=== PATIENT | male | born 1995 | race Hispanic/Latino ===

== ENCOUNTER 2018-02-14 10:00 | Emergency (ER) | payer OTHER | END 2018-02-14 10:54 | disposition home or self-care (01) | LOC: ERS 10:00 | DX: H66.93 Otitis media, unspecified, bilateral (principal); F17.210 Nicotine dependence, cigarettes, uncomplicated | CPT/HCPCS: 99282 ==

== ENCOUNTER 2020-06-22 10:05 | Emergency (ER) | payer BC ==
--- NOTE | 2020-06-22 10:42 | CT ---
CT head noncontrast HISTORY: Head injury. FINDINGS: There is no evidence of acute intracranial hemorrhage or infarct. The ventricles appear nor mal in size, shape and position. There is no mass effect or shift of midline structures. Visualized paranasal sinuses remain well aerated. IMPRESSION : No abnormalities are demonstrated.
--- NOTE | 2020-06-22 10:47 | CT ---
CT face noncontrast HISTORY: Injury. FINDINGS: The mandible, globes, and zygomatic arches are intact. Paranasal sinuses are well-aerated. No displaced fractures evident. Possible subcutaneous soft tissue injury over the right frontal calvarium. IMPRESSION : Right frontal soft tissue injury. No acute osseous abnormalities are demonstrated.
--- NOTE | 2020-06-22 10:55 | RAD ---
EXAM: Lumbar spine 3 views: HISTORY: Low back pain, injury COMPARISON: None FINDINGS: No evidence for acute fracture or dislocation or significant acute osseous process. Alignment:No significant malalignment. Discs: Disc spaces are adequately preserved. No evidence for a focal bone lesion. IMPRESSION: No significant acute process.
--- NOTE | 2020-06-22 10:57 | RAD ---
Exam: Pelvis one view: HISTORY: Injury COMPARISON: None FINDINGS: No evidence for fracture, dislocation, or other significant acute osseous abnormality. IMPRESSION: No significant acute process.
== END 2020-06-22 11:18 | disposition home or self-care (01) ==
LOC: ERS 10:05
DX: S05.12XA Contusion of eyeball and orbital tissues, left eye, initial encounter (principal); S05.11XA Contusion of eyeball and orbital tissues, right eye, initial encounter; H11.33 Conjunctival hemorrhage, bilateral; M54.5 Low back pain; F17.210 Nicotine dependence, cigarettes, uncomplicated; Y04.0XXA Assault by unarmed brawl or fight, initial encounter
CPT/HCPCS: 70450; 70486; 72100; 72170